=== PATIENT | male | born 1965 | race Caucasian/White ===

== ENCOUNTER 2018-03-25 15:18 | Emergency (ER) | payer OTHER ==
[2018-03-25 15:23] VITALS: TEMP 98.2
[2018-03-25] MEDS ORDERED: NITROGLYCERIN SL TABS 0.4 MG TAB SUBLINGUAL STA (15:33)
[2018-03-25] MEDS ORDERED: ASPIRIN 81 MG PO STA (15:33)
--- NOTE | 2018-03-25 15:45 | ED ---
Chest Pain HPI - General Chief Complaint: Chest Pain Stated Complaint: Chest pain,tightness Time Seen by Provider: 03/25/18 15:25 Source: patient, family, RN notes reviewed Mode of arrival: wheelchair Limitations: no limitations - History of Present Illness Initial Comments: This is a 52-year-old male with a benign past medical history presents with complaints of the onset around 11 AM today of retrosternal chest tightness that was 4/10 in severity. He states it is unknown 3/10 been going on since that time he went into an outpatient clinic and EKG and was sent here for further evaluation. Patient does state he's been having intermittent episodes of this over last 4-5 weeks he does also admit he does lift weights and were started a gym he does not smoke has no prior history of heart or lung disease no other medical problems. No family history of early heart disease that he is aware of. He does have high cholesterol is been on medications for 10 years. No fevers chills nausea vomiting sweats or other symptoms no other modifying factors at this time. MD Complaint: chest pain - Related Data Home Medications Medication Instructions Recorded Confirmed Ascorbic Acid [Vitamin C] 500 mg PO DAILY 03/25/18 03/25/18 Multivitamins, Thera [Multivitamin 1 tab PO DAILY 03/25/18 03/25/18 (formulary)] [place]-3 Fatty Acids/Fish Oil [Fish 2 cap PO BID 03/25/18 03/25/18 Oil 1,000 mg Softgel] Simvastatin [Zocor] 20 mg PO HS 03/25/18 03/25/18 Allergies Allergy/AdvReac Type Severity Reaction Status Date / Time No Known Allergies Allergy Verified 03/25/18 16:13 Review of Systems ROS Statement: Those systems with pertinent positive or pertinent negative responses have been documented in the HPI. ROS Other: All systems not noted in ROS Statement are negative. EKG Findings - EKG Results: EKG: interpreted by KARLO, sinus rhythm (Sinus rhythm rate of 56. Interval 166 QRS duration 114 QT since QTC 424/49 nonspecific configuration this is compared with an EKG submitted from the outpatient clinic from earlier today. There is evidence of incomplete right bundle-branch block) Past Medical History Past Medical History: Hyperlipidemia History of Any Multi-Drug Resistant Organisms: None Reported Past Surgical History: No Surgical Hx Reported Past Psychological History: No Psychological Hx Reported Smoking Status: Never smoker Past Alcohol Use History: Occasional Past Drug Use History: None Reported General Exam - General Exam Comments Initial Comments: This is a well-developed well-nourished awake alert oriented times 3 male Limitations: no limitations General appearance: alert Head exam: Present: atraumatic, normocephalic, normal inspection Eye exam: Present: normal appearance, PERRL, EOMI. Absent: scleral icterus, conjunctival injection, periorbital swelling ENT exam: Present: normal exam, mucous membranes moist Neck exam: Present: normal inspection. Absent: tenderness, meningismus, lymphadenopathy Respiratory exam: Present: normal lung sounds bilaterally. Absent: respiratory distress, wheezes, rales, rhonchi, stridor, chest wall tenderness Cardiovascular Exam: Present: regular rate, normal rhythm, normal heart sounds. Absent: systolic murmur, diastolic murmur, rubs, gallop, clicks GI/Abdominal exam: Present: soft, normal bowel sounds. Absent: distended, tenderness, guarding, rebound, rigid Extremities exam: Present: normal inspection, full ROM, normal capillary refill. Absent: tenderness, pedal edema, joint swelling, calf tenderness Back exam: Present: normal inspection Neurological exam: Present: alert, oriented X3, CN II-XII intact Psychiatric exam: Present: normal affect, normal mood Skin exam: Present: warm, dry, intact, normal color. Absent: rash Course Vital Signs 03/25/18 03/25/18 03/25/18 15:21 16:05 16:46 Temperature 98.2 F Pulse Rate 58 L 59 L 58 L Respiratory 16 18 16 Rate Blood Pressure 136/83 128/69 139/81 O2 Sat by Pulse 100 99 100 Oximetry - Reevaluation(s) Reevaluation #1: 03/25/18 17:09 Reevaluation with nitroglycerin reveals minimal change in symptoms Chest Pain MDM - MDM I did review the imaging and report no acute findings. I was able to obtain old charting from [facility] EKGs dated 09/05/2015 as well as 09/04/2015 as well as 12/14/2017 showed very similar configuration as incomplete right bundle-branch block is consistent with today's EKGs. After long discussions with the patient has . Patient will be discharged I did recommend an outpatient stress test she is to follow-up with his doctor as planned in 2 days I did recommend a baby aspirin daily he is return if any problems. He was given copies of today's EKGs as well as the copies from [facility]. Disposition Clinical Impression: Atypical chest pain Disposition: HOME SELF-CARE Condition: Good Instructions: Chest Pain (ED) Is patient prescribed a controlled substance at d/c from ED?: No Referrals: Nonstaff,Physician [Primary Care Provider] - 1-2 days
[2018-03-25 15:53] LABS: Basophils % (A) 0 %; Eosinophils # (A) 0.1 k/uL (0-0.7); Eosinophils % (A) 1 %; HCT 42.3 % (39.0-53.0); HGB 14.6 gm/dL (13.0-17.5); Lymphocytes # (A) 1.7 k/uL (1.0-4.8); Lymphocytes % (A) 16 %; MCH 30.6 pg (25.0-35.0); MCHC 34.6 g/dL (31.0-37.0); MCV 88.4 fL (80.0-100.0); Mean Platelet Volume 6.3; Monocytes # (A) 0.3 k/uL (0-1.0); Monocytes % (A) 3 %; Neutrophils # (A) 8.2 k/uL (1.3-7.7); Neutrophils % (A) 79 %; Platelet Count 223 k/uL (150-450); RBC 4.78 m/uL (4.30-5.90); RDW 12.4 % (11.5-15.5); WBC 10.4 k/uL (3.8-10.6)
[2018-03-25 16:03] LABS: Creatine Kinase 191 U/L (55-170)
--- NOTE | 2018-03-25 16:04 | XR ---
EXAMINATION TYPE: XR chest 2V DATE OF EXAM: 03/25/2018 COMPARISON: NONE HISTORY: Chest pain TECHNIQUE: Frontal and lateral views of the chest are obtained. FINDINGS: There is no focal air space opacity, pleural effusion, or pneumothorax seen. The cardiac silhouette size is within normal limits. The osseous structures are intact. IMPRESSION: No acute cardiopulmonary process.
[2018-03-25 16:05] LABS: Albumin 4.6 g/dL (3.5-5.0); Calcium 9.6 mg/dL (8.4-10.2); D-Dimer <0.17 mg/L FEU (<0.60); INR 1.1 (<1.2); Partial Thromboplastin Time 22.9 sec (22.0-30.0); Potassium 4.4 mmol/L (3.5-5.1); Prothrombin Time 10.4 sec (9.0-12.0); Total Bilirubin 0.8 mg/dL (0.2-1.3); Total Protein 7.4 g/dL (6.3-8.2)
[2018-03-25 16:16] LABS: Creatine Kinase MB 0.8 ng/mL (0.0-2.4); Troponin I <0.012 ng/mL (0.000-0.034)
[2018-03-25 16:48] VITALS: RESP 16
[2018-03-25 17:35] VITALS: BP 150/78; PULSE 64
== END 2018-03-25 17:35 | disposition home or self-care (01) ==
LOC: EC 15:18
DX: R07.89 Other chest pain (principal); E78.00 Pure hypercholesterolemia, unspecified; E78.5 Hyperlipidemia, unspecified; Z79.899 Other long term (current) drug therapy
CPT/HCPCS: 36415; 71046; 80053; 82150; 82550; 82553; 83690; 83735; 83880; 84484; 85025; 85379; 85610; 85730; 93005; 99285